=== PATIENT | female | born 1995 | race Caucasian/White ===

== ENCOUNTER 2021-09-22 14:49 | Outpatient (RCR) | payer OTHER | END 2021-09-25 | disposition home or self-care (01) | LOC: MKS.ESL.PT | DX: M75.41 Impingement syndrome of right shoulder (principal) ==

== ENCOUNTER 2021-10-20 10:00 | Outpatient (RCR) | payer OTHER | END 2021-10-26 | disposition home or self-care (01) | LOC: MKS.ESL.PT | DX: M75.41 Impingement syndrome of right shoulder (principal) ==

== ENCOUNTER 2021-11-11 09:00 | Outpatient (RCR) | payer OTHER | END 2021-11-23 | disposition home or self-care (01) | LOC: MKS.ESL.PT | DX: M75.41 Impingement syndrome of right shoulder (principal) ==

== ENCOUNTER → 2022-06-11 | Outpatient (CLI) | payer OTHER | LOC: COL.RAD 07:19 | DX: N97.9 Female infertility, unspecified (principal) | CPT/HCPCS: Q9967 ==